=== PATIENT | female | born 1930 | race Caucasian/White ===

== ENCOUNTER 2019-02-08 18:53 | Inpatient (IN) | payer OTHER ==
[~2019-02-08] VITALS: Ht 182.9 cm; Wt 92.5 kg
[2019-02-08] VITALS (10 sets, daily range): BP systolic 127–161; BP diastolic 56–73
--- NOTE | ~2019-02-08 | O ---
[facility] [place] [address] OPERATIVE REPORT Name: ARABELLA JAMISON Room #: 239-P ADM IN M.R.#: [id number] Admission: 02/08/19 ������������������ Attend Phys: Gagandeep Ravi MD Discharge: ������������������ Date of : [birth year]/19/[birth year] Report #: [id number] THIS REPORT FOR: //name// CC: Jaydon Ravi DATE OF SERVICE: 02/08/2019 PREOPERATIVE DIAGNOSIS: Ischemic bowel. POSTOPERATIVE DIAGNOSIS: Ischemic bowel. PROCEDURE: Exploratory laparotomy with superior mesenteric artery exploration. SURGEON: Steve Bartholomew MD ANESTHESIA: General. ESTIMATED BLOOD LOSS: Minimal. SPECIMEN: None. DESCRIPTION OF PROCEDURE: After informed consent was obtained, the patient was brought to the operating room and placed supine. SCDs were placed and working, preoperative antibiotics were administered, general anesthesia was induced. The abdomen was prepped and draped in the usual sterile fashion. Midline laparotomy incision was made measuring approximately 20 cm around the umbilicus. Fascia was incised. Immediately turbid fluid was released from the abdomen. I then examined the small bowel. There was global ischemia of the small bowel. To resect all of the bowel, would have left her with no small bowel. Small bowel was reflected to the right. The base of the SMA was identified. The peritoneum overlying the SMA was incised. Dissection was made down to the SMA. Vessel loop was tied around the proximal SMA. A small incision was made in the SMA. The SMA was very calcified. There was very little blood flow in the SMA. However, I could not see a thrombus. The arteriotomy was closed with a 6-0 Prolene in [id number] fashion. The bowel was again examined. All of the small bowel was completely ischemic. The colon appeared normal. The small bowel was then placed back into the abdomen. The fascia was closed with a running 0 PDS. Skin was closed with jay. INTRAOPERATIVE FINDINGS: Global ischemia of the entire small bowel. [facility] [address] [place] [address] OPERATIVE REPORT Name: ARABELLA JAMISON Room #: 239-[facility].#: [id number] Admission: 02/08/19 ������������������ Attend Phys: Gagandeep Ravi MD Discharge: ������������������ Date of : [birth year]/19/[birth year] Report #: [id number] COMPLICATIONS: None. DISPOSITION: The patient was taken back to ICU in poor condition. ��������������������������������������������� ���������������������������������������� By: ��������������������������������������������� 2216 Steve Bartholomew MD /nt
[~2019-02-08 18:53] MED LIST: ACCUNEB0.63 MG/3; AMLODIPINE BESY10 MG PO; ASPIRIN325 PO; BYSTOLIC10 MG PO; FOSAMAX 70 MG T70 M1 PO; LASIX 20 MG TAB20 MG PO; LISINOPRIL10 MG PO; PLAVIX 75 MG TA75 MG PO; POTASSIUM CHLO10 ME1 PO; SIMVASTATIN40 MG PO; SINGULAIR 10 MG10 M1 PO
[2019-02-08 19:29] LABS: BE(vivo) 6.2 mmol/L (-2 to +3); HCO3 30.6 mmol/L (22.0-26.0); PCO2 42.8 mmHg (35.0-45.0); PO2 75.7 mmHg (80.0-100.0); pH 7.472 (7.360-7.450); sO2 95.9 % (92.0-98.0)
[2019-02-08 19:44] LABS: ABSOLUTE NEUTROPHILS 13.7 thou/uL (1.4-8.2); BASOPHILS 0.1 % (0.0-2.0); HEMATOCRIT 44.6 % (37.0-47.0); HEMOGLOBIN 14.7 gm/dL (12.0-15.0); LYMPHOCYTES 3.3 % (24.0-44.0); MCH 29.9 pg (26.0-34.0); MCV 90.5 fL (80.0-100.0); MONOCYTES 5.6 % (1.0-8.0); PLATELET COUNT 252 thou/uL (150-400); RBC 4.93 mil/uL (4.20-5.00); RDW 14.4 % (10.5-14.5)
[2019-02-08 19:57] LABS: APTT 28.1 Seconds (24.5-32.8); FIBRINOGEN 458.3 mg/dL (210-360); INR 1.1; PROTIME 11.6 Seconds (9.3-11.4)
[2019-02-08 20:08] LABS: ALBUMIN 2.6 g/dL (3.4-5.0); POTASSIUM 2.9 mmol/L (3.5-5.1); TOTAL BILIRUBIN 0.6 mg/dL (<0.1-1.0); TOTAL PROTEIN 7.1 g/dL (6.4-8.2)
--- NOTE | 2019-02-08 20:13 | NUR ---
VASCULAR ACCESS PLACING A 5FRTLPICC TO RT IJ, PLEASE SEE INSERTION NOTE FOR DETAILS
[2019-02-08 20:46] LABS: URINE BILIRUBIN NEGATIVE (Negative); URINE BLOOD 1+ (Negative); URINE CLARITY SL CLOUDY; URINE COLOR YELLOW; URINE GLUCOSE-RANDOM* 1+ (Negative); URINE KETONES NEGATIVE (Negative); URINE LEUKOCYTES-REFLEX 1+ (Negative); URINE NITRITE-REFLEX NEGATIVE (Negative); URINE PROTEIN (DIPSTICK) 2+ (Negative); URINE SPECIFIC GRAVITY 1.015 (1.005-1.035); URINE UROBILINOGEN 0.2 E.U./dl (0.2-1.0)
[2019-02-08 21:03] LABS: CASTS None Seen /LPF (None Seen); CRYSTALS None Seen /LPF (None Seen); MUCUS None Seen strn/LPF (None Seen); SQUAMOUS None Seen /LPF (0-3); URIC ACID CRYSTALS >10 Many /LPF (None Seen); URINE RBC 3-10 Few /HPF (0-2); URINE WBC-REFLEX >25 Many /HPF (0-5); WBC CLUMPS Few (None Seen)
[2019-02-08 23:02] LABS: BE(vivo) 3.3 mmol/L (-2 to +3); HCO3 29.1 mmol/L (22.0-26.0); PCO2 48.9 mmHg (35.0-45.0); PO2 157.4 mmHg (80.0-100.0); pH 7.393 (7.360-7.450)
[2019-02-08 23:49] LABS: CALCIUM 8.1 mg/dL (8.5-10.1); CREATININE 0.8 mg/dL (0.6-1.0); POTASSIUM 3.5 mmol/L (3.5-5.1)
--- NOTE | 2019-02-08 23:50 | NUR ---
ASSUMED CARE OF PT AT 1900. PT A DIRECT ADMIT FROM [facility] ARRIVED SHORTLY BEFORE SHIFT CHANGE. PT STARTED ON SEPSIS PROTOCOL. SURGERY CONSULTED DUE TO POSSIBLE ISCHEMIC BOWEL. DR. GOLDSTEIN CAME IN AND PERFORMED EMERGENT EXPLORATORY LAP. PT'S ENTIRE SMALL BOWEL WAS NECROTIC; NO RESECTION WAS DONE. PT RETURNED TO UNIT AT 2220. PT INTUBATED AND ON VENT. PULM CONSULTED. DR. CAMARGO CAME IN TO SEE PT AND SPOKE WITH FAMILY REGARDING COMFORT CARE. FAMILY WILL NOTIFY NURSING WHEN READY TO TRANSITION TO COMFORT CARE.
[2019-02-09] VITALS: BP 132/58
[2019-02-09 00:15] VITALS: BP 138/61
--- NOTE | 2019-02-09 00:22 | NUR ---
FAMILY EXPRESSED AT 0010 THAT THEY WOULD LIKE TO SWITCH PT TO COMFORT CARE. MORPHINE GTT AND MORPHINE PRN ORDERED. FAMILY WISHES TO PULL ET TUBE TONIGHT.
[2019-02-09 00:30] VITALS: BP 137/56
[2019-02-09 00:45] VITALS: BP 129/53
[2019-02-09 01:00] VITALS: BP 137/56
--- NOTE | 2019-02-09 05:15 | NUR ---
PT ON COMFORT CARE. ET TUBE PULLED AT 0115. MORPHINE GTT STARTED. FAMILY AT BEDSIDE. PT APPEARS TO BE COMFORTABLE AND NOT IN ANY DISTRESS. ORDERS FOR MED/SURG ENTERED, MIGHT HAVE TO MOVE PT TO ANOTHER ROOM. WILL CONTINUE TO MONITOR.
--- NOTE | 2019-02-09 08:15 | NUR ---
PT TX'D TO 4E AT 0805 THIS MORNING; PT REMAINS ON COMFORT CARE WITH MORPHINE GTT. REPORT GIVEN TO FLOWER FLORES AT 0600.
--- NOTE | 2019-02-09 11:05 | EKG ---
[address] [place] [address] ELECTROCARDIOGRAM REPORT Name: ARABELLA JAMISON Room #: 421-P ADM IN M.R.#: [id number] ������������������ Admission: 02/08/19 ������������������ Attend Phys: Gagandeep Ravi MD Discharge: ������������������ Date of : [birth year]/19/[birth year] Report #: [id number] ����������������������������������������������������������������� [id number] THIS REPORT FOR: //name// [facility] Test Date: 2019-02-08 Test Time: 20:09:51 Pat Name: ARABELLA JAMISON Department: Room: [facility] Gender: F Forming Operator: Shayy GEORGE : 1930 Requested By: Gagandeep Ravi Order Number: [id number] MD: Marques Manriquez Measurements Intervals [place] Rate: 100 P: 51 WV: 139 QRS: 19 QRSD: 78 T: 167 QT: 337 QTc: 435 Interpretive Statements Sinus tachycardia Ventricular premature complex ST segment abnormalities in lateral leads, rule out ischemia Compared to ECG 11/18/2010 08:39:13 Ventricular premature complex(es) now present Sinus rhythm no longer present Poor R-wave progression no longer present Electronically Signed On 02-09-2019 11:05:41 CDT by Marques Manriquez [email or web address] ��������������������������������������������� <ELECTRONICALLY SIGNED> ���������������������������������������� By: Marques Manriquez MD ��������������������������������������������� 02/09/19 1105 08 08 Marques Manriquez MD /EPI
--- NOTE | 2019-02-09 15:10 | NUR ---
PT ON COMFORT CARE. NO CHANGE SINCE AM ASSESMENT. SEDATED. MORPHINE GTT INCREASED TO 10MG/HR FROM 6MG/HR PER DR. FIELDS. FAMILY AT BEDSIDE.
--- NOTE | 2019-02-09 17:26 | NUR ---
NOTED PT WITH 6-8 MINUTE PERIODS OF APNEA. FAMILY REMAINS AT BEDSIDE.
--- NOTE | 2019-02-09 18:55 | NUR ---
INCREASED MORPHINE RATE BY 1 MG ORDERED. ATIVAN GIVEN ORDERED.
--- NOTE | 2019-02-10 07:13 | NUR ---
PATIENT REMAINS ON COMFORT CARE WITH FAMILY AT BEDSIDE THROUGHOUT THE NIGHT. MORPHINE DRIP IS SET AT 14 AT THIS TIME WITH INCREMENTS THAT CAN GO UP TO 20. RODRIGUEZ TO D/D. 2LNC IN PLACE. RESTING COMFORTABLY WITH PERIODS OF MOANING. WILL MONITOR.
--- NOTE | 2019-02-10 16:13 | NUR ---
AT 1235 CALLED TO PATIENT'S ROOM. PT W/O RESPIRATIONS NO HR SIN PALE COOL TO TOUCH. CALLED [employer], AND DR MUÑOZ. SPOKE WITH SAGRARIO AT CORONORS OFFICE AND CALLED [employer] SPOKE WITH [employer] REFERAL # [id number]. CALLED ALL CONSULT DOCTORS TO INFORM OF . . FAMILY ALL IN ROOM TO PAY RESPECTS. PT [facility]. [phone] [place]URITY [place] [facility] [place]
--- NOTE | 2019-02-12 19:29 | HC ---
[facility] [place] [address] CONSULTATION Name: ARABELLA JAMISON Room #: 421-P [facility] IN M.R.#: [id number] Admission: 02/08/19 ������������������ Attend Phys: Gagandeep Ravi MD Discharge: 02/10/19 ������������������ Date of : [birth year]/19/[birth year] Report #: [id number] THIS REPORT FOR: //name// CC: Jaydon Ravi DATE OF SERVICE: 02/08/2019 REFERRING PHYSICIAN: Dr. Ravi. REASON FOR REFERRAL: Postoperative respiratory care. HISTORY OF PRESENT ILLNESS: The patient is an 88-year-old white female who was transferred from outside facility for an acute abdomen. Earlier today, she was taken to the OR. Intraoperatively, the patient was found to have extensive bowel ischemia. It was deemed inoperable. Abdomen was closed. The patient was transferred to the ICU. Currently, she is resting on mechanical ventilation. Family members are present. History is unable to be obtained as the patient is intubated. PAST MEDICAL HISTORY: Includes coronary artery disease, hypertension, hyperlipidemia, dementia, degenerative joint disease. She is a prison resident. ALLERGIES: None to medications. MEDICATIONS: From the facility include Zocor 40 mg once a day, Plavix 75 mg p.o. once a day, Zestril 10 mg once a day, aspirin once a day, Lasix 20 mg once a day, potassium supplements once a day, Bystolic 10 mg once a day, amlodipine 10 mg once a day, Singulair 10 mg once a day, Fosamax 70 mg once a weak, nebulized DuoNeb q.i.d. p.r.n. PAST SURGICAL HISTORY: Includes right lumpectomy for breast cancer, rotator cuff surgery, right knee surgery, right leg fracture in 2004 with the repair. REVIEW OF SYSTEMS: Deferred as the patient is intubated. PHYSICAL EXAMINATION: GENERAL: She is sedated, does not appear to be in distress. VITAL SIGNS: Temperature 97.5 degrees Fahrenheit, pulse is 80, respiratory rate is 18, blood pressure 160/69 mmHg, saturation 100%. HEENT: Normocephalic, atraumatic. [facility] [address] [place] [address] CONSULTATION Name: ARABELLA JAMISON Room #: 421-P [facility] IN M.R.#: [id number] Admission: 02/08/19 ������������������ Attend Phys: Gagandeep Ravi MD Discharge: 02/10/19 ������������������ Date of : [birth year]/19/[birth year] Report #: [id number] NECK: Supple without any lymphadenopathy or thyromegaly. CHEST: Breath sounds are clear anteriorly without any rales or wheezes. CARDIOVASCULAR: Normal S1, S2. There are no murmurs or gallops. There is no JVD. There is no carotid bruit. Pulses are 2+/4+ bilaterally. ABDOMEN: Mildly distended. No masses felt. Bandage as noted in the mid abdominal area. GENITOURINARY: Deferred. RECTAL: Deferred. EXTREMITIES: There is no edema, cyanosis or clubbing. NEUROLOGIC: Deferred as the patient is sedated from general anesthesia. LABORATORY DATA: Portable chest x-ray is clear. Lactic acid is 3.9. Procalcitonin level is 0.68. Electrolytes are normal. Serum bicarbonate is 30. WBC is 15,000; hemoglobin 14.7; platelets are normal. Arterial blood gas revealed pH 7.39, pCO2 of 40, pO2 of 157, FiO2 of 60%. IMPRESSION: 1. Global small bowel ischemia, inoperable. 2. Acute hypoxic respiratory failure. 3. History of dementia. 4. Coronary artery disease. 5. . RECOMMENDATION AND DISCUSSION: Overall, prognosis appears to be green. Would recommend comfort measures. This was discussed with the patient's family. They voice understanding. Morphine drip will be initiated along with morphine p.r.n. Thank you for this consultation. ��������������������������������������������� <ELECTRONICALLY SIGNED> ���������������������������������������� By: Davidson Prajapati MD ��������������������������������������������� 02/12/19 1929 1554 21 Davidson Prajapati MD /nt
== END 2019-02-10 16:30 | DRG 853 ==
LOC: ICU 18:53 → 4E 02-09 08:19
PROVIDERS: Internal Medicine Pulmonary Disease; ADMIT Internal Medicine
PROC: 04JY0ZZ Inspection of Lower Artery, Open Approach (ICD-10-PCS; principal; 2019-02-08)
PROC: 02HV33Z Insertion of Infusion Device into Superior Vena Cava, Percutaneous Approach (ICD-10-PCS; principal; 2019-02-08)
DX: A41.9 Sepsis, unspecified organism (principal); K55.019 Acute (reversible) ischemia of small intestine, extent unspecified; J96.01 Acute respiratory failure with hypoxia; Z51.5 Encounter for palliative care; R65.20 Severe sepsis without septic shock; I25.10 Atherosclerotic heart disease of native coronary artery without angina pectoris; Z96.651 Presence of right artificial knee joint; I10 Essential (primary) hypertension; Z66 Do not resuscitate; E78.5 Hyperlipidemia, unspecified; F03.90 Unspecified dementia, unspecified severity, without behavioral disturbance, psychotic disturbance, mood disturbance, and anxiety; M19.90 Unspecified osteoarthritis, unspecified site; Z79.82 Long term (current) use of aspirin; Z85.3 Personal history of malignant neoplasm of breast
CPT/HCPCS: 10078; 10783; 50101; 50386; 51412; 56524; 56527; 56528; 57092; 57103; 62110; 62900; 65020; 65040